=== PATIENT | male | born 1985 | race American Indian/Alaskan Native ===

== ENCOUNTER 2016-10-01 18:44 | Emergency (ER) | payer BC ==
[2016-10-01 19:50] LABS: Alanine Aminotransferase 24 units/L (7-56); Alkaline Phosphatase 118 units/L (35-129); Anion Gap 19 mmol/L; Blood Urea Nitrogen 7 mg/dL (9-20); Calcium 9.3 mg/dL (8.4-10.2); Carbon Dioxide 26 mmol/L (22-30); Glucose 154 mg/dL (75-100); Lipase 14 units/L (13-60); Potassium 4.4 mmol/L (3.6-5.0); Sodium 138 mmol/L (137-145); Total Protein 8.2 g/dL (6.3-8.2)
[2016-10-01 19:52] LABS: Basophils % (Auto) 0.6 % (0.0-1.8); Eosinophils % (Auto) 0.1 % (0.0-4.3); Hematocrit 45.7 % (35.5-45.6); Hemoglobin 15.3 gm/dl (11.8-15.2); Mean Corpuscular HGB Conc 33 % (32-34); Mean Corpuscular Hemoglobin 30 pg (28-32); Mean Corpuscular Volume 89 fl (84-94); Platelet Count 295 K/mm3 (140-440); Red Blood Count 5.13 M/mm3 (3.65-5.03); Red Cell Distribution Width 13.6 % (13.2-15.2); White Blood Count 9.4 K/mm3 (4.5-11.0)
--- NOTE | 2016-10-01 20:26 | Ultrasound Report ---
FINAL REPORT PROCEDURE: Limited abdominal ultrasound. TECHNIQUE: Real-time sonography was performed of the abdomen with image documentation. CPT 51039 HISTORY: Bulging area in midline, possible hernia. COMPARISON: No prior studies are available for comparison. FINDINGS: The area of bulging was scanned above the umbilicus. There is a moderate amount of ascites visible. There is no definite defect in the anterior abdominal wall to suggest a hernia. A hernia is much better evaluated with a CT scan however. IMPRESSION: Moderate amount of ascites. No definite hernia identified by ultrasound scanning.
--- NOTE | 2016-10-01 20:56 | Emergency Department Report ---
ED Abdominal Pain HPI - General Chief Complaint: Abdominal Pain Stated Complaint: ABD PAIN/ POSS HERNIA Time Seen by Provider: 10/01/16 20:53 Source: patient Mode of arrival: Ambulatory Limitations: No Limitations - History of Present Illness Initial Comments: Pt is a 31 yr old male with a history of large ventral hernia presents to the ED c/o abd pain. Pt reports he has had this large hernia for years but it is usually reducible and does not cause him pain. Since this AM he reports its protruding more than usual and causing him discomfort. He denies any fevers, chills, AMBROSIO, dizzines, NVD, SOB, abd trauma, falls, skin changes, travel, or sick contacts. - Related Data Previous Rx's Medication Instructions Recorded Last Taken Type HYDROcodone/APAP 5-325 [[place] 1 each PO Q4HR PRN #12 tablet 10/01/16 Unknown Rx 5/325] Allergies Allergy/AdvReac Type Severity Reaction Status Date / Time No Known Allergies Allergy Unverified 10/01/16 18:50 ED Review of Systems ROS: Stated complaint: ABD PAIN/ POSS HERNIA Other details as noted in HPI Comment: All other systems reviewed and negative ED Past Medical Hx - Past Medical History Hx Hypertension: Yes - Surgical History Additional Surgical History: Tonsils - Social History Smoking Status: Never Smoker Substance Use Type: None - Medications Home Medications: Home Medications Medication Instructions Recorded Confirmed Last Taken Type HYDROcodone/APAP 5-325 [[place] 1 each PO Q4HR PRN #12 tablet 10/01/16 Unknown Rx 5/325] ED Physical Exam - General Limitations: No Limitations General appearance: alert, in no apparent distress, obese - Head Head exam: Present: atraumatic, normocephalic - Eye Eye exam: Present: normal appearance - ENT ENT exam: Present: mucous membranes moist - Neck Neck exam: Present: normal inspection - Respiratory Respiratory exam: Present: normal lung sounds bilaterally. Absent: respiratory distress - Cardiovascular Cardiovascular Exam: Present: regular rate, normal rhythm. Absent: systolic murmur, diastolic murmur, rubs, gallop - GI/Abdominal GI/Abdominal exam: Present: soft, tenderness (mild tenderness over ventral hernia), normal bowel sounds, hernia (Large ventral hernia, not reducible, no erythema or skin changes overlying the hernia) - Rectal Rectal exam: Present: deferred - Extremities Exam Extremities exam: Present: normal inspection - Back Exam Back exam: Present: normal inspection - Neurological Exam Neurological exam: Present: alert, oriented X3 - Psychiatric Psychiatric exam: Present: normal affect, normal mood - Skin Skin exam: Present: warm, dry, intact, normal color. Absent: rash ED Course Vital Signs 10/01/16 10/01/16 18:50 20:29 Temperature 97.8 F Pulse Rate 81 75 Respiratory 20 16 Rate Blood Pressure 178/121 Blood Pressure 152/97 [Left] O2 Sat by Pulse 98 99 Oximetry ED Medical Decision Making - Lab Data Result diagrams: 10/01/16 19:18 10/01/16 19:18 - Medical Decision Making Case d/w Dr Amezcua, given patients current clinical status, he is afebrile, comfortabl, no overlying skin changes, no N/V, he is not an emergent case for the OR. Pt also is morbidly obese, cannot have a CT scan, and we cannot provide surgical capabilities for a man his size at this time. Pt will be given follow up with Dr Ireland a bariatric specialist. Plan discussed with patient and he agrees to follow up as outpatient. I instructed the patient to got [place] or [place] if he acutely has worsening symptoms such as fever, nausea, vomiting, increasing pain, overlying skin changes. Pt understood. Critical care attestation.: If time is entered above; I have spent that time in minutes in the direct care of this critically ill patient, excluding procedure time. ED Disposition Clinical Impression: Abdominal pain, Abdominal hernia Disposition: DC-01 TO HOME OR SELFCARE Is pt being admited?: No Condition: Stable Instructions: Abdominal Pain (ED), Ventral Hernia (ED) Additional Instructions: If your symptoms acutely worsen please go to [place] or [place] for further evaluation where there are capabilities for possible surgical intervention Please make an appt with Dr Ireland for follow up Prescriptions: HYDROcodone/APAP 5-325 [[place] 5/325] 1 each PO Q4HR PRN #12 tablet PRN Reason: Pain Referrals: PRIMARY CARE, [Primary Care Provider] - 3-5 Days KAYLEEN IRELAND MD [Staff Physician] - 3-5 Days
[2016-10-01 21:36] LABS: Bilirubin,Urine NEG (Negative); Blood,Urine NEG (Negative); Ketones,Urine NEG (Negative); Leukocyte Esterase,Urine NEG (Negative); Mucus,Urine FEW /HPF; Nitrite,Urine NEG (Negative); Urobilinogen,Urine < 2.0 mg/dL (<2.0)
[2016-10-01 21:43] LABS: Protein,Urine >500 mg/dL (Negative)
[2016-10-01 23:31] VITALS: BP 158/91
== END 2016-10-01 23:25 | disposition home or self-care (01) ==
LOC: ED 18:44
DX: K46.9 Unspecified abdominal hernia without obstruction or gangrene (principal); R10.9 Unspecified abdominal pain; I10 Essential (primary) hypertension
CPT/HCPCS: 36415; 76705; 80053; 81001; 83690; 85025